=== PATIENT | female | born 1990 | race American Indian/Alaskan Native ===

== ENCOUNTER 2024-03-31 05:04 | Inpatient (IN) | payer OTHER ==
[2024-03-31] VITALS (17 sets, daily range): BP systolic 123–143; BP diastolic 70–85; PULSE 80–101; TEMP 97.9–98.2
[~2024-03-31] VITALS: Ht 157.6 cm; Wt 86.4 kg
--- NOTE | 2024-03-31 05:15 | NUR ---
G2L1 arrives to unit for scheduled section. Pt oriented to room, call light within reach, bed in low and locked position. Clean gown on. US and toco explained and applied. IV started in left forearm with 1 attempt. Admission labs obtained off IV start. Lactated ringers bolus infusing. Consents reviewed and signed with patient, questions invited and answered.
[2024-03-31] MEDS ORDERED: LR 1,000 ML IV SCH ×2 (05:45→07:00)
[2024-03-31] MEDS ORDERED: CLARITIN 1010 MG/TAB PO (06:37)
[2024-03-31 06:38] LABS: BASO % 0.5 % (0.0-2.0); EOS # 0.1 K/mm3 (0.0-0.7); EOS % 0.7 % (0.0-4.0); GRAN # 5.9 K/mm3 (1.4-6.5); HEMATOCRIT 39.6 % (37.0-47.0); HEMOGLOBIN 12.9 g/dl (12.5-16.0); LYMPH # 2.1 K/mm3 (1.2-3.4); LYMPH % 24.1 % (20.0-51.0); MEAN CELL VOLUME 82 fl (80.0-100.0); MEAN CORPUSCULAR HEMOGLOBIN 27 pg (27-31); MEAN CORPUSCULAR HGB CONC 33 g/dl (33.0-37.0); MEAN PLATELET VOLUME 9.6 fl (7.4-10.4); MONO # 0.6 K/mm3 (0.1-0.6); MONO % 7.1 % (1.7-9.3); PLATELET COUNT 354 K/mm3 (130-400); RED BLOOD COUNT 4.84 M/mm3 (4.10-5.30); REDCELL DISTRIBUTION WIDTH-CV 14.9 % (11.5-14.5)
[2024-03-31] MEDS ORDERED: PROFERRIN ES12 MG (06:38)
[2024-03-31] MEDS ORDERED: Ondansetron 4 MG/2 ML VIAL IV SCH (07:00)
[2024-03-31] MEDS ORDERED: Oxytocin 10 UNITS/ML VIAL ONE (07:07)
[2024-03-31] MEDS ORDERED: ePHEDrine 50 MG/ML VIAL ONE (07:07)
[2024-03-31] MEDS ORDERED: Phenylephrine 10 MG/ML VIAL ONE (07:07)
[2024-03-31] MEDS ORDERED: Ketorolac 30 MG/ML VIAL ONE (07:42)
[2024-03-31] MEDS ORDERED: dexAMETHasone 10 MG/ML VIAL ONE (07:54)
[2024-03-31] MEDS ORDERED: NS 10 ML IV ONE (07:54)
[2024-03-31] MEDS ORDERED: Loratadine 10 MG TAB PO PRN (08:30)
[2024-03-31] MEDS ORDERED: Magnes Hydrox (MOM) 80 MG/ML 30 ML CUP PO PRN (08:30)
[2024-03-31] MEDS ORDERED: Sertraline 50 MG TAB PO SCH (09:00)
[2024-03-31] MEDS ORDERED: Naloxone 0.4 MG/ML VIAL IV PRN (09:15)
[2024-03-31] MEDS ORDERED: LR 1,000 ML IV PRN (09:15)
[2024-03-31] MEDS ORDERED: Ondansetron 4 MG/2 ML VIAL IV PRN (09:15)
[2024-03-31] MEDS ORDERED: oxyCODONE/Acetaminophen 5-325 MG TAB PO PRN (09:15)
[2024-03-31] MEDS ORDERED: Measles/Mumps/Rubella Virus Vaccine Live w Diluent 0.5 ML VIAL SQ SCH (09:15)
[2024-03-31] MEDS ORDERED: Ibuprofen 800 MG TAB PO SCH (14:22)
[2024-03-31] MEDS ORDERED: Sennosides/Docusate 8.6-50 MG TAB PO SCH (17:00)
[2024-03-31] MEDS ORDERED: traZODone 50 MG TAB PO PRN (21:00)
[2024-04-01] VITALS: BP 118/70; PULSE 94; TEMP 97.9
[2024-04-01 04:30] VITALS: BP 135/76; PULSE 95; TEMP 98
[2024-04-01] MEDS ORDERED: MOTRIN 800800 MG/TAB PO (08:16)
[2024-04-01] MEDS ORDERED: PERCOCET 325 MG1 TA2 PO (08:17)
[2024-04-01] MEDS ORDERED: ZOLOFT 50MG50 MG PO (08:19)
[2024-04-01 08:30] VITALS: BP 118/76; PULSE 84; TEMP 97.4
[2024-04-01 17:10] VITALS: BP 122/76; PULSE 83; TEMP 98.3
[2024-04-01 19:58] VITALS: BP 130/78; PULSE 80; TEMP 97.7
[2024-04-02 08:45] VITALS: BP 140/82; PULSE 96; TEMP 97.7
--- NOTE | 2024-04-02 12:28 | NUR ---
1103 CALLED YONI FROM PT, YONI STATED HE EVALUATED PATIENT, AND GAVE HER AN ASO TO WEAR WITH SHOES, AND A CANE TO USE. SEE HOW IT IS IN SEVERAL DDAYS. IF NOT BETTER SHE IS TO CONTACT DR FOR OUTPATIENT THERAPY.
== END 2024-04-02 12:05 | disposition home or self-care (01) | DRG 788 ==
LOC: OB 05:04
PROVIDERS: ADMIT Obstetrics & Gynecology
PROC: 10D00Z1 Extraction of Products of Conception, Low, Open Approach (ICD-10-PCS; principal; 2024-03-31)
DX: O34.211 Maternal care for low transverse scar from previous cesarean delivery (principal); Z3A.39 39 weeks gestation of pregnancy; Z37.0 Single live birth; M21.371 Foot drop, right foot; O99.344 Other mental disorders complicating childbirth; F32.89 Other specified depressive episodes; O90.89 Other complications of the puerperium, not elsewhere classified
CPT/HCPCS: J0665; J1100; J1885; J2371; J2405; J2590; J2765; J7120; L1930